=== PATIENT | male | born 1965 | race American Indian/Alaskan Native ===

== ENCOUNTER 2024-02-25 08:34 | Emergency (ER) | payer OTHER ==
[~2024-02-25] VITALS: Ht 182.9 cm; Wt 96.8 kg
--- NOTE | ~2024-02-25 | EKG ---
[facility] [address] [facility] [place], [place] [address] Draft EK completed, results pending confirmation PATIENT NAME: HENRY MARROQUIN Electrocardiogram DATE OF : 69 PHYSICIAN: PRELIMINARY REPORT #: [id number] REPORT IS CONFIDENTIAL AND NOT TO BE RELEASED WITHOUT AUTHORIZATION
[2024-02-25] MEDS ORDERED: NITROGLYCERIN 0.4 MG SUBL SL PRN (08:45)
[2024-02-25] MEDS ORDERED: ASPIRIN 81 MG CHEW PO ONE ×2 (08:45)
[2024-02-25 08:55] LABS: BASOPHILS 0.6 % (0-2); HEMATOCRIT 46.4 % (35.0-50.0); HEMOGLOBIN 15.4 g/dL (12.0-18.0); LYMPHOCYTES 28.7 % (24-44); MCH 30.1 (27-36); MCHC 33.1 g/dl (30-36); MCV 90.9 fl (81-99); MONOCYTES 8.9 % (0-12); NEUTROPHILS 60.8 % (39-80); PLATELET COUNT 279 K/uL (140-440); RDW 14.6 (10.5-15.0)
[2024-02-25] MEDS ORDERED: LIPITOR10 MG (08:56)
[2024-02-25] MEDS ORDERED: METFORMIN HCL1000 M1 PO (08:56)
[2024-02-25] MEDS ORDERED: ASPIRIN81 MG PO (08:57)
[2024-02-25 09:02] LABS: INR 0.92 (0.80-1.30); PROTIME 11.7 Sec (11.2-14.2)
[2024-02-25 09:13] LABS: ALBUMIN 3.4 g/dL (3.4-5.0); ALBUMIN/GLOBULIN RATIO 0.69 (1.1-2.4); ANION GAP 15.1 (7-21); BILIRUBIN, TOTAL 0.3 ng/dL (0.2-1.0); BUN/CREATININE RATIO 20.61 (6.0-28.6); CALCIUM 9.5 mg/dL (8.5-10.1); CREATININE, SERUM 0.97 mg/dL (0.70-1.30); MAGNESIUM 1.7 mg/dL (1.8-2.4); POTASSIUM 4.1 mmol/L (3.5-5.1); PROTEIN, TOTAL 8.3 g/dL (6.4-8.2)
[2024-02-25] MEDS ORDERED: HEPARIN SOD,PORK IN 0.45% NACL 500 ML IV SCH (11:00)
[2024-02-25] MEDS ORDERED: HEParin SOD (PORCINE) 5,000 UNIT/ML VIAL IV ONE (11:00)
[2024-02-25 13:05] VITALS: BP 112/73
== END 2024-02-25 13:05 | disposition short-term general hospital (02) ==
LOC: ED 08:34
PROVIDERS: Emergency Medicine
DX: I21.4 Non-ST elevation (NSTEMI) myocardial infarction (principal); Z79.82 Long term (current) use of aspirin; Z79.4 Long term (current) use of insulin; Z79.899 Other long term (current) drug therapy
CPT/HCPCS: 36415; 71045; 80053; 83735; 83880; 84484; 85025; 85610; 85730; 93005; 93010; 96374; 99285-25; A9270; J1644